=== PATIENT | male | born 1975 | race Caucasian/White ===

== ENCOUNTER 2018-10-01 19:21 | Emergency (ER) | payer MEDICAID ==
[~2018-10-01] VITALS: Ht 157.5 cm; Wt 54.0 kg
[2018-10-01] MEDS ORDERED: KETOROLAC 60MG/2ML VIAL IM ONE (21:15)
[2018-10-01 21:40] VITALS: BP 127/76
== END 2018-10-01 22:57 | disposition home or self-care (01) ==
LOC: ER 19:21
DX: G89.29 Other chronic pain (principal); M25.562 Pain in left knee; M25.561 Pain in right knee; R21 Rash and other nonspecific skin eruption; Z87.828 Personal history of other (healed) physical injury and trauma; R03.0 Elevated blood-pressure reading, without diagnosis of hypertension
CPT/HCPCS: 96372; 99283; J1885